=== PATIENT | female | born 1980 | race Hispanic/Latino ===

== ENCOUNTER 2017-02-09 13:50 | Emergency (ER) | payer OTHER ==
[2017-02-09 13:54] VITALS: BMI 26.4
[2017-02-09 14:00] VITALS: BP 130/78; PULSE 80; RESP 18; TEMP 97.8; O2SAT 100
[2017-02-09] MEDS ORDERED: Alum-Mag Hydrox-Simethicone Susp (30 mL) PO STA (14:07)
--- NOTE | 2017-02-09 14:14 | ED PDOC ---
Arrival/HPI - General Chief Complaint: Chest Pain Time Seen by Provider: 02/09/17 14:01 Historian: Patient - History of Present Illness Narrative History of Present Illness (Text): 02/09/17 14:02 A 36 year female, whose past medical history includes cholecystectomy and hypotension, presents to the emergency department complaining of belching that began at 1130 today. She reports that she feels a discomfort in her chest and keeps burbing. She reports 2 episodes of vomiting. Denies shortness of breath. Denies abdominal pain, diarrhea/constipation or urinary complaints. Denies hx of cardiac disease. Denies HTN, DM, or drug use. Denies family hx of sudden cardiac . Denies OCP use, recent surgery, prolonged immobility, hx of PE/DVT, hx of calf swelling PMD: None 02/09/17 17:49 Time/Duration: 1-3 hours Symptom Onset: Sudden Symptom Course: Unchanged Quality: Other Activities at Onset: Rest Context: Home Past Medical History - Provider Review Nursing Documentation Reviewed: Yes - Infectious Disease Hx of Infectious Diseases: None - Tetanus Immunization Tetanus Immunization: Unknown - Past Medical History Past Medical History: No Previous - Cardiac Hx Cardiac Disorders: No - Pulmonary Hx Respiratory Disorders: No - Neurological Hx Neurological Disorder: No - HEENT Hx HEENT Disorder: No - Renal Hx Renal Disorder: No - Endocrine/Metabolic Hx Endocrine Disorders: No - Hematological/Oncological Hx Blood Disorders: No - Integumentary Hx Dermatological Disorder: No - Musculoskeletal/Rheumatological Hx Musculoskeletal Disorders: No - Gastrointestinal Hx Gastrointestinal Disorders: No - Genitourinary/Gynecological Hx Genitourinary Disorders: No - Psychiatric Hx Psychophysiologic Disorder: Yes Hx Anxiety: Yes Hx Depression: No Hx Emotional Abuse: No Hx Physical Abuse: No Hx Substance Use: No - Surgical History Hx Cholecystectomy: Yes - Anesthesia Hx Anesthesia: Yes Hx Anesthesia Reactions: No - Suicidal Assessment Feels Threatened In Home Enviroment: No Family/Social History - Physician Review Nursing Documentation Reviewed: Yes Family/Social History: No Known Family HX Smoking Status: Never Smoked Hx Alcohol Use: No Hx Substance Use: No Hx Substance Use Treatment: No Allergies/Home Meds Allergies/Adverse Reactions: Allergies hydromorphone HCl [From Dilaudid] Allergy (Verified 02/09/17 13:54) ITCHING levofloxacin Allergy (Verified 02/09/17 13:54) ITCHING metoclopramide HCl [From Reglan] Allergy (Verified 02/09/17 13:54) ITCHING Home Medications: Home Meds Medication Instructions Recorded Confirmed Levocetirizine Dihydrochloride 5 mg PO DAILY 02/09/17 02/09/17 [Xyzal] Review of Systems - Physician Review All systems were reviewed & negative as marked: Yes - Review of Systems Constitutional: absent: Fevers Respiratory: absent: SOB, Cough, Sputum Cardiovascular: Chest Pain (epigastric) Gastrointestinal: Nausea, Vomiting, Other (belching). absent: Abdominal Pain, Stool Changes, Constipation, Diarrhea Genitourinary Female: absent: Dysuria, Frequency, Hematuria, Urine Output Changes, Vaginal Bleeding, Vaginal Discharge Musculoskeletal: absent: Arthralgias Skin: absent: Rash Neurological: absent: Headache, Dizziness Physical Exam - Physical Exam Narrative Physical Exam (Text): Patient belching throughout examination Vital Signs Reviewed: Yes Vital Signs Temp Pulse Resp BP Pulse Ox 02/09/17 13:59 97.8 F 80 18 130/78 100 Temperature: Afebrile Blood Pressure: Normal Pulse: Regular Respiratory Rate: Normal Appearance: Positive for: Well-Appearing, Non-Toxic, Comfortable Pain Distress: None Mental Status: Positive for: Alert and Oriented X 3 - Systems Exam Head: Present: Atraumatic, Normocephalic Pupils: Present: PERRL Extroacular Muscles: Present: EOMI Conjunctiva: Present: Normal Mouth: Present: Moist Mucous Membranes Neck: Present: Normal Range of Motion Respiratory/Chest: Present: Clear to Auscultation, Good Air Exchange. No: Respiratory Distress, Accessory Muscle Use Cardiovascular: Present: Regular Rate and Rhythm, Normal S1, S2. No: Murmurs Abdomen: Present: Normal Bowel Sounds. No: Tenderness, Distention, Peritoneal Signs Back: Present: Normal Inspection Upper Extremity: Present: Normal Inspection. No: Cyanosis, Edema Lower Extremity: Present: Normal Inspection. No: Edema Neurological: Present: GCS=15, CN II-XII Intact, Speech Normal Skin: Present: Warm, Dry, Normal Color. No: Rashes Psychiatric: Present: Alert, Oriented x 3, Normal Insight, Normal Concentration Medical Decision Making ED Course and Treatment: 02/09/17 14:02 Impression: A 36 year old female with belching and chest pain. Patient has no cardiac risk factors. Differential Diagnosis included but are not limited to: Gastroenteritis vs. Pancreatitis vs. GERD vs. PUD Plan: -- EKG -- Chest X-ray -- Labs -- Urinalysis -- Reassess and disposition Prior Visits: Notes and results from previous visits were reviewed. The patient last presented to the emergency department on 12/05/14 for evaluation of worsening lower back pain, hematuria and burning urination. Progress Notes: EKG: Ordered, reviewed, and independently interpreted the EKG. Rate : 100 BPM Rhythm : NSR Interpretation : No ST-segment elevations or depressions, no T-wave inversions, normal intervals. 02/09/17 15:16 Cxray negative. Labs WNL. UA shows hematuria and patient aware to follow-up. Patient reports improvement of symptoms. Will po challenge 02/09/17 15:46 Patient is tolerating po and requesting to go home. Mother is at bedside and patient now stating that she believes her belching is secondary to stress at work. She has had negative workup in the past and was instructed to follow-up with GI. 02/09/17 16:25 Chest X-ray: Creator : Davy Edgar MD COMPARISON: No prior. FINDINGS: LUNGS: No active pulmonary disease. PLEURA: No significant pleural effusion identified. No pneumothorax apparent. CARDIOVASCULAR: Normal. OSSEOUS STRUCTURES: No significant abnormalities. VISUALIZED UPPER ABDOMEN: Normal. OTHER FINDINGS: None. IMPRESSION: No active disease. 02/09/17 17:52 - Lab Interpretations Lab Results: 02/09/17 14:18 02/09/17 14:18 Lab Results 02/09/17 14:20: Urine Color Yellow, Urine Appearance Clear, Urine pH 7.0, Ur Specific Vantage 1.015, Urine Protein Negative, Urine Glucose (UA) Negative, Urine Ketones Negative, Urine Blood Small H, Urine Nitrate Negative, Urine Bilirubin Negative, Urine Urobilinogen 0.2, Ur Leukocyte Esterase Negative, Urine RBC 0 - 2, Urine WBC Negative, Ur Epithelial Cells 4 - 5 02/09/17 14:18: WBC 8.0 D, RBC 4.32, Hgb 12.4, Hct 36.3, MCV 84.0, MCH 28.7, MCHC 34.2, RDW 13.6, Plt Count 244, MPV 9.4, Gran % 74.9 H, Lymph % (Auto) 19.9 L, Otero % (Auto) 4.6, Eos % (Auto) 0.4 L, Baso % (Auto) 0.2, Gran # 6.01, Lymph # 1.6, Otero # 0.4, Eos # 0.0, Baso # 0.02, Sodium 140, Potassium 3.5 L, Chloride 102, Carbon Dioxide 26, Anion Gap 16, BUN 12, Creatinine 0.6, Est GFR ( Amer) > 60, Est GFR (Non-Af Amer) > 60, Random Glucose 98, Calcium 10.0 , Phosphorus 3.4, Magnesium 2.0, Lipase 76 I have reviewed the lab results: Yes - RAD Interpretation Radiology Orders: 02/09/17 14:06 CHEST TWO VIEWS (PA/LAT) [RAD] Stat - Medication Orders Current Medication Orders: Discontinued Medications Al Hydrox/Mg Hydrox/Simethicone (Maalox Plus 30 Ml) 30 ml PO STAT STA Stop: 02/09/17 14:08 Last Admin: 02/09/17 14:21 Dose: 30 ML Famotidine (Pepcid) 20 mg IVP STAT STA Stop: 02/09/17 14:08 Last Admin: 02/09/17 14:20 Dose: 20 MG IVP Administration Document 02/09/17 14:20 SE (Rec: 02/09/17 14:20 SE [id number]) Charges for Administration # of IVP Administrations 1 Ondansetron HCl (Zofran Inj) 4 mg IVP STAT STA Stop: 02/09/17 14:08 Last Admin: 02/09/17 14:21 Dose: 4 MG IVP Administration Document 02/09/17 14:21 SE (Rec: 02/09/17 14:21 SE [id number]) Charges for Administration # of IVP Administrations 1 - Scribe Statement The provider has reviewed the documentation as recorded by the Scribe Karla Wong Provider Scribe Attestation: All medical record entries made by the Scribe were at my direction and personally dictated by me. I have reviewed the chart and agree that the record accurately reflects my personal performance of the history, physical exam, medical decision making, and the department course for this patient. I have also personally directed, reviewed, and agree with the discharge instructions and disposition. Disposition/Present on Arrival - Present on Arrival Any Indicators Present on Arrival: No History of DVT/PE: No History of Uncontrolled Diabetes: No Urinary Catheter: No History of Decub. Ulcer: No History Surgical Site Infection Following: None - Disposition Have Diagnosis and Disposition been Completed?: Yes Diagnosis: Belching Disposition: HOME/ ROUTINE Disposition Time: 15:46 Patient Plan: Discharge Condition: GOOD Additional Instructions: Follow up with GI for further evaluation. Return to ED if condition worsens Referrals: Rashad Sands MD [Primary Care Provider] - Follow up with primary Lyudmila Tillman MD [Staff Provider] - Follow up with primary
[2017-02-09 14:20] LABS: ADD MANUAL DIFF? NO
[2017-02-09 14:29] LABS: BASO # 0.02 K/mm3 (0.0-2.0); BASO % 0.2 % (0.0-3.0); EOS % 0.4 % (1.5-5.0); GRAN # 6.01 (1.4-6.5); GRAN % 74.9 % (50.0-68.0); HEMATOCRIT 36.3 % (36.0-48.0); LYMPH # 1.6 (1.2-3.4); LYMPH % 19.9 % (22.0-35.0); MEAN CORPUSCULAR HEMOGLOBIN 28.7 pg (25.0-35.0); MEAN CORPUSCULAR HGB CONC 34.2 g/dl (31.0-37.0); MEAN PLATELET VOLUME 9.4 fl (7.0-11.0); MONO # 0.4 (0.1-0.6); MONO % 4.6 % (1.0-6.0); PLATELET COUNT 244 10^3/uL (120.0-450.0); RED CELL DISTRIBUTION WIDTH 13.6 % (11.5-14.5)
[2017-02-09 14:31] LABS: URINE APPEARANCE CLEAR (CLEAR); URINE BILIRUBIN NEGATIVE (NEGATIVE); URINE BLOOD SMALL (NEGATIVE); URINE COLOR YELLOW (YELLOW); URINE GLUCOSE (UA) NEGATIVE (NEGATIVE); URINE KETONE NEGATIVE (NEGATIVE); URINE LEUKOCYTE ESTERASE NEGATIVE Leu/uL (NEGATIVE); URINE PROTEIN NEGATIVE mg/dL (<30 mg/dL); URINE UROBILINOGEN 0.2 E.U./dL (<1 E.U./dL)
[2017-02-09 14:33] LABS: BLOOD UREA NITROGEN 12 mg/dL (7-21); CARBON DIOXIDE 26 mmol/L (21-33); CHLORIDE 102 mmol/L (98-107); GFR AFRICAN-AMERICAN > 60; GLUCOSE,RANDOM 98 mg/dL (70-110); LIPASE 76 U/L (23-300); PHOSPHOROUS 3.4 mg/dL (2.5-4.5); POTASSIUM 3.5 mmol/L (3.6-5.0); SODIUM 140 mmol/L (132-148)
[2017-02-09 14:35] LABS: URINE RBC 0 - 2 /hpf (0-2); URINE WBC NEGATIVE /hpf (0-6)
--- NOTE | 2017-02-09 16:26 | RAD ---
HISTORY: chest pain, burping COMPARISON: No prior. TECHNIQUE: Chest PA and lateral FINDINGS: LUNGS: No active pulmonary disease. PLEURA: No significant pleural effusion identified. No pneumothorax apparent. CARDIOVASCULAR: Normal. OSSEOUS STRUCTURES: No significant abnormalities. VISUALIZED UPPER ABDOMEN: Normal. OTHER FINDINGS: None. IMPRESSION: No active disease.
--- NOTE | 2017-02-09 18:22 | CARD ---
APPROVED REPORT EKG Measurement Heart [id number] <Conclusion> Normal sinus rhythm Nonspecific ST abnormality Abnormal ECG
== END 2017-02-09 15:50 | disposition home or self-care (01) ==
LOC: ED 13:50
DX: R14.2 Eructation (principal)
CPT/HCPCS: 71020; 80048; 81001; 83690; 83735; 84100; 85025; 93005; 96374; 96375; 99284; J2405